=== PATIENT | male | born 1990 | race Caucasian/White ===

== ENCOUNTER → 2024-06-25 | Outpatient (CLI) | payer OTHER ==
--- NOTE | 2024-06-25 16:25 | HMCIMG ---
Exam Type: MR ANKLE LEFT WO Clinical Information: PAIN ATTTN ACHILLES Comparison: None Technique: The ankle MRI consists of axial fast spin echo T2, sagittal T1, coronal fast spin echo T2, and sagittal fast spin echo T2 with fat saturation. Tri-plane single localizer images were also obtained. FINDINGS: There is a partial tear of the Achilles tendon approximately 3 cm proximal to the calcaneal insertion, with associated surrounding focal fluid. The articular surfaces are preserved. No significant osteophytosis is identified on this exam. No joint effusion is noted. No osteochondral defects are seen and the ligamentous and tendinous structures of the ankle are preserved. IMPRESSION: Partial Achilles tendon tear.
== END | disposition home or self-care (01) ==
LOC: RAH 10:22
PROVIDERS: ATTEND Family Medicine
DX: S86.012D Strain of left Achilles tendon, subsequent encounter (principal); X58.XXXD Exposure to other specified factors, subsequent encounter
CPT/HCPCS: 73721